=== PATIENT | female | born 1980 | race Two or more races ===

== ENCOUNTER 2018-11-24 22:32 | Emergency (ER) | payer MEDICAID ==
[2018-11-24 22:59] VITALS: BP 110/64
[2018-11-25] MEDS ORDERED: ACETAMINOPHEN 325 MG TABLET PO ONE (00:16)
--- NOTE | 2018-11-25 00:16 | ER Document Report ---
ED Medical Screen (RME) - General Chief Complaint: Laceration Stated Complaint: LACERATION Time Seen by Provider: 11/25/18 00:10 Notes: Patient is a 38-year-old female who presented to the emergency department with a head laceration. Patient states that tonight she was at work cleaning the bathroom when she slipped on a wet floor falling forward. Patient states she believes she struck her head on a trash can. Patient reports having a lac eration above the left eye. Patient denies loss of consciousness or neck pain. Patient does report a headache. Patient also reports left knee pain. Patient states she has been able to ambulate since the accident. TRAVEL OUTSIDE OF THE [place] IN LAST 30 DAYS: No Physical Exam - Vital signs Vitals: Temp Pulse Resp BP Pulse Ox 97.9 F 64 18 110/64 100 11/24/18 22:58 11/24/18 22:58 11/24/18 22:58 11/24/18 22:58 11/24/18 22:58 - HEENT Head: Normocephalic, Open wounds - 2.5 cm laceration above the left eye, active oozing of blood. Course - Re-evaluation Re-evalutation: 11/25/18 00:16 She will need sutures to repair the laceration above the left eye. Patient states her tetanus is up-to-date. Will give Tylenol for the headache. I have greeted and performed a rapid initial assessment of this patient. A comprehensive ED assessment and evaluation of the patient, analysis of test results and completion of the medical decision making process will be conducted by additional ED providers. - Vital Signs Vital signs: Temp Pulse Resp BP Pulse Ox 97.9 F 64 18 110/64 100 11/24/18 22:58 11/24/18 22:58 11/24/18 22:58 11/24/18 22:58 11/24/18 22:58
[2018-11-25] MEDS ORDERED: LIDOCAINE 1% INJ (10 MG/ML) 10 ML MDV ONE (00:56)
--- NOTE | 2018-11-25 01:21 | ER Document Report ---
ED General - General Chief Complaint: Laceration Stated Complaint: LACERATION Time Seen by Provider: 11/25/18 00:10 TRAVEL OUTSIDE OF THE [place] IN LAST 30 DAYS: No - HPI Notes: Patient is a 38 yo female that presents to the emergency department for chief complaint of left eyelid laceration. Patient states this evening she was at work and was walking carrying a plastic trash can. She slipped and fell forward hitting her left eyelid off of the trashcan. She denied any loss of consciousness. She denies any vision changes. She states her last tetanus vaccine was within 5 years. Patient reports a sh lamont pain at the laceration site on her left upper eyelid. She denies being on blood thinning medication. She denies severe headache or vomiting. Past Medical History: Negative Past Surgical History: Negative Social History: Denies drugs alcohol and tobacco Family History: Reviewed and noncontributory for presenting illness Allergies: Reviewed, see documented allergy list. REVIEW OF SYSTEMS: CONSTITUTIONAL : No fever No chills No diaphoresis No recent illness EENT: No vision changes No congestion No sore throat CARDIOVASCULAR: No chest pain No palpitations RESPIRATORY: No shortness of breath No cough No difficulty breathing GASTROINTESTINAL: No abdominal pain No nausea No vomiting No diarrhea GENITOURINARY: No dysuria No hematuria No difficulty urinating MUSCULOSKELETAL: No back pain No leg pain No arm pain SKIN: No rashes Eyelid laceration LYMPHATIC: No swollen, enlarged glands. NEUROLOGICAL: No lightheadedness No headache No weakness No paresthesias PSYCHIATRIC: No anxiety No depression PHYSICAL EXAMINATION: Vital signs reviewed, nursing noted reviewed. GENERAL: Well-appearing, well-nourished and in no acute distress. HEAD: Atraumatic, normocephalic. EYES: No pain with ocular movement, PERRLA, eyes appear normal, extraocular movements intact, sclera anicteric, conjunctiva are normal. ENT: No facial bone tenderness or laxity, no epistaxis, nares patent, oropharynx clear without exudates. Moist mucous membranes. NECK: Normal range of motion, supple without lymphadenopathy LUNGS: Breath sounds clear to auscultation bilaterally and equal. No wheezes rales or rhonchi. HEART: Regular rate and rhythm without murmurs ABDOMEN: Soft, nontender, normoactive bowel sounds. No rebound, guarding, or rigidity. No masses appreciated. EXTREMITIES: Nontender, good range of motion, no pitting or edema. NEUROLOGICAL: No focal neurological deficits. Moves all extremities spontaneously Motor and sensory grossly intact on exam. PSYCH: Normal mood, normal affect. SKIN: Warm, Dry, normal turgor, 2.8 cm linear full-thickness laceration to upper eyelid just below left eyebrow with mild bleeding Past Medical History - Social History Smoking Status: Never Smoker Frequency of alcohol use: None Drug Abuse: None Family History: Reviewed & Not Pertinent Patient has suicidal ideation: No Patient has homicidal ideation: No Renal/ Medical History: Denies: Hx Peritoneal Dialysis Past Surgical History: Reports: Hx Cholecystectomy Physical Exam - Vital signs Vitals: Temp Pulse Resp BP Pulse Ox 97.9 F 64 18 110/64 100 11/24/18 22:58 11/24/18 22:58 11/24/18 22:58 11/24/18 22:58 11/24/18 22:58 Course - Re-evaluation Re-evalutation: 11/25/18 01:21 Vitals reviewed. Nursing notes reviewed. Patient received Tylenol for pain. Her tetanus vaccine is up-to-date. She does have a laceration to her left upper eyelid that was repaired with suture. Patient has no facial bone tenderness or signs of intracranial hemorrhage. She was counseled on wound care. No further work-up indicated. She is stable for discharge. - Vital Signs Vital signs: Temp Pulse Resp BP Pulse Ox 97.9 F 64 18 110/64 100 11/24/18 22:58 11/24/18 22:58 11/24/18 22:58 11/24/18 22:58 11/24/18 22:58 Procedures - Laceration/Wound Repair Left eyelid Time completed: 01:21 Wound length (cm): 2.8 Wound's Depth, Shape: Linear Laceration pre-procedure: Sterile PPE donned, Sterile drapes applied, Shur-Clens applied Anesthetic type: 1% Lidocaine Volume Anesthetic (mLs): 3 Wound explored: Clean, No foreign body removed Irrigated w/ Saline (mLs): 100 Wound Repaired With: Sutures Suture Size/Type: 5:0, Nylon Number of Sutures: 6 Layer Closure?: No Post-procedure NV exam normal: Yes Complications: No Discharge - Discharge Clinical Impression: Eyelid laceration, left Qualifiers: Encounter type: initial encounter Qualified Code(s): S01.112A - Laceration without foreign body of left eyelid and periocular area, initial encounter Condition: Stable Disposition: HOME, SELF-CARE Instructions: Laceration Care (OM) Additional Instructions: Have your stitches removed in 5 days Return to the emergency room for any new concerning symptoms Wash your wound daily with warm soapy water Apply triple antibiotic ointment or Neosporin 1-2 times daily Referrals: [facility] [Provider Group] - 11/30/18
== END 2018-11-25 01:27 | disposition home or self-care (01) ==
LOC: ER 22:32
DX: S01.112A Laceration without foreign body of left eyelid and periocular area, initial encounter (principal); W01.198A Fall on same level from slipping, tripping and stumbling with subsequent striking against other object, initial encounter; Y93.89 Activity, other specified; Y99.0 Civilian activity done for income or pay
CPT/HCPCS: 99282; 12013; J3490